=== PATIENT | female | born 1995 | race Two or more races ===

== ENCOUNTER 2018-09-05 06:43 | Emergency (ER) | payer MEDICAID ==
[~2018-09-05] VITALS: Ht 172.7 cm; Wt 131.8 kg
[~2018-09-05 06:43] MED LIST: CYCL-1 PO; MECL-111 PO
[2018-09-05 07:15] LABS: CLARITY,URINE CLEAR (Clear); COLOR,URINE YELLOW (Yellow); GLUCOSE, URINE NEGATIVE (Neg); KETONES,URINE TRACE mg/dl (Neg); LEUKOCYTE ESTERASE ,URINE MODERATE (Neg); NITRITES, URINE NEGATIVE (Neg); OCCULT BLOOD,URINE MODERATE (Neg); PH,URINE 5.5 (4.8-8.0); PROTEIN,URINE NEGATIVE (Neg); UROBILINOGEN,URINE 0.2 E.U/dL (0.2-1.0)
[2018-09-05 07:16] LABS: UA COLLECTION TYPE CLN CATCH MIDSTREAM; URINE HCG NEGATIVE (NEG)
[2018-09-05] MEDS ORDERED: ondansetron 4mg rapidly disintigrating tab PO ONE (07:20)
[2018-09-05 07:22] LABS: BACTERIA,URINE FEW /HPF (Neg); MUCUS STRANDS NONE SEEN /LPF (Neg); RBC,URINE 0-2 /HPF (0-2); SQUAMOUS EPITHELIAL CELL,UR MODERATE /LPF (FEW)
[2018-09-05] MEDS ORDERED: ETON1VAG VG (07:22)
[2018-09-05 07:41] LABS: BASOPHILS # (AUTO) 0.1 X10'3 (0-0.2); BASOPHILS % (AUTO) 0.7 % (0-1); EOSINOPHILS # (AUTO) 0.1 X10'3 (0-0.9); EOSINOPHILS % (AUTO) 0.5 % (0-6); HEMATOCRIT 36.1 % (35.0-45.0); HEMOGLOBIN 11.5 g/dl (12.0-16.0); LYMPHOCYTES # (AUTO) 1.9 X10'3 (1.1-4.8); LYMPHOCYTES % (AUTO) 18.9 % (21-51); MEAN CORPUSCULAR HEMOGLOBIN 22.8 PG (27.0-31.0); MEAN CORPUSCULAR HGB CONC 31.9 % (33.0-36.5); MEAN CORPUSCULAR VOLUME 71.6 FL (78-98); MEAN PLATELET VOLUME 8.7 FL (7.4-10.4); MONOCYTES # (AUTO) 0.5 X10'3 (0-0.9); MONOCYTES % (AUTO) 4.7 % (2-12); NEUTROPHILS # (AUTO) 7.7 X10'3 (1.8-7.7); NEUTROPHILS % (AUTO) 75.2 % (42-75); PLATELET COUNT 494 X10'3 (140-440); RED BLOOD COUNT 5.05 X10'6 (4.20-5.60); RED CELL DISTRIBUTION WIDTH 15.2 % (11.5-14.5); WHITE BLOOD COUNT 10.3 X10'3 (4.5-11.0)
--- NOTE | 2018-09-05 07:45 | NUR ---
US at bedside
[2018-09-05 07:55] LABS: ALANINE AMINOTRANSFERASE 20 U/L (12-78); ALBUMIN 3.3 G/DL (3.4-5.0); ALBUMIN/GLOBULIN RATIO 0.6 (1.1-1.5); ALKALINE PHOSPHATASE 77 IU/L (46-116); AMYLASE 43 U/L (25-115); ANION GAP 11 (8-16); ASPARTATE AMINO TRANSFERASE 10 U/L (10-37); BILIRUBIN,TOTAL 0.2 MG/DL (0.1-1.0); BLOOD UREA NITROGEN 12 MG/DL (7-18); BUN/CREATININE RATIO 12.9 (6.6-38.0); CHLORIDE 103 MMOL/L (99-107); CREATININE 0.93 MG/DL (0.40-0.90); GLUCOSE 111 MG/DL (70-104); LIPASE 83 U/L (73-393); POTASSIUM 3.8 MMOL/L (3.5-5.1); SODIUM 138 MMOL/L (135-145); TOTAL CARBON DIOXIDE 23.7 MMOL/L (24-32); TOTAL PROTEIN 8.7 G/DL (6.4-8.2); eGFR 75 ML/MIN
[2018-09-05 08:12] LABS: PROTHROMBIN TIME 9.8 SECONDS (9.0-12.0)
[2018-09-05] MEDS ORDERED: dicyclomine 10 MG capsule PO ONE (08:45)
[2018-09-05] MEDS ORDERED: mag hydrox/Alum hydrox/simeth 30ml oral suspension PO ONE (08:45)
[2018-09-05] MEDS ORDERED: LIDOcaine Viscous 15ml cup PO ONE (08:45)
[2018-09-05] MEDS ORDERED: PANT-47 PO (08:46)
[2018-09-05 09:32] VITALS: BP 133/69
== END 2018-09-05 09:34 | disposition home or self-care (01) ==
LOC: ER 06:43
DX: R10.13 Epigastric pain (principal); R11.2 Nausea with vomiting, unspecified; Z88.0 Allergy status to penicillin; Z79.899 Other long term (current) drug therapy
CPT/HCPCS: 36415; 76705; 80053; 81001; 81025; 82150; 83690; 85025; 85610; 87088; 99284

== ENCOUNTER 2020-07-31 05:39 | Inpatient (IN) | payer BC, OTHER ==
[2020-07-31] VITALS (8 sets, daily range): BP systolic 125–150; BP diastolic 80–103
[~2020-07-31] VITALS: Ht 172.7 cm; Wt 113.0 kg
[~2020-07-31 05:39] MED LIST changes: -CYCL-1 PO; +ETON1VAG VG; -MECL-111 PO; +PANT-47 PO
[2020-07-31 06:28] LABS: ALANINE AMINOTRANSFERASE 25 U/L (12-78); ALBUMIN 3.4 G/DL (3.4-5.0); ALBUMIN/GLOBULIN RATIO 0.7 (1.1-1.5); ALKALINE PHOSPHATASE 103 IU/L (46-116); ANION GAP 8 (8-16); ASPARTATE AMINO TRANSFERASE 13 U/L (10-37); BILIRUBIN,TOTAL 0.2 MG/DL (0.1-1.0); BLOOD UREA NITROGEN 12 MG/DL (7-18); BUN/CREATININE RATIO 14.3 (6.6-38.0); CALCIUM 9.1 MG/DL (8.5-10.1); CHLORIDE 106 MMOL/L (99-107); CREATININE 0.84 MG/DL (0.40-0.90); GLUCOSE 108 MG/DL (70-104); LIPASE < 50 U/L (73-393); POTASSIUM 4.1 MMOL/L (3.5-5.1); SODIUM 140 MMOL/L (135-145); TOTAL CARBON DIOXIDE 25.8 MMOL/L (24-32); TOTAL PROTEIN 8.3 G/DL (6.4-8.2); eGFR 83 ML/MIN
[2020-07-31 06:36] LABS: BASOPHILS # (AUTO) 0.1 X10'3 (0-0.2); BASOPHILS % (AUTO) 0.4 % (0-1); EOSINOPHILS # (AUTO) 0.1 X10'3 (0-0.9); EOSINOPHILS % (AUTO) 1.1 % (0-6); HEMATOCRIT 36.2 % (35.0-45.0); HEMOGLOBIN 11.6 g/dl (12.0-16.0); LYMPHOCYTES # (AUTO) 3.7 X10'3 (1.1-4.8); LYMPHOCYTES % (AUTO) 28.7 % (21-51); MEAN CORPUSCULAR HEMOGLOBIN 22.7 PG (27.0-31.0); MEAN CORPUSCULAR HGB CONC 32.2 g/dL (33.0-36.5); MEAN CORPUSCULAR VOLUME 70.6 FL (78-98); MEAN PLATELET VOLUME 8.3 FL (7.4-10.4); MONOCYTES # (AUTO) 0.9 X10'3 (0-0.9); MONOCYTES % (AUTO) 6.8 % (2-12); NEUTROPHILS # (AUTO) 8.2 X10'3 (1.8-7.7); PLATELET COUNT 474 X10'3 (140-440); RED BLOOD COUNT 5.12 X10'6 (4.20-5.60)
[2020-07-31] MEDS ORDERED: famotidine/PF 10 mg/ml inj IV ONE ×2 (06:55→20:55)
[2020-07-31 07:02] LABS: CLARITY,URINE SLIGHTLY CLOUDY (Clear); COLOR,URINE YELLOW (Yellow); GLUCOSE, URINE NEGATIVE (Neg); KETONES,URINE NEGATIVE (Neg); LEUKOCYTE ESTERASE ,URINE NEGATIVE (Neg); NITRITES, URINE NEGATIVE (Neg); OCCULT BLOOD,URINE NEGATIVE (Neg); PROTEIN,URINE NEGATIVE (Neg); UROBILINOGEN,URINE 0.2 E.U/dL (0.2-1.0)
[2020-07-31 07:03] LABS: URINE HCG NEGATIVE (NEG)
[2020-07-31 07:11] LABS: UA COLLECTION TYPE CLN CATCH MIDSTREAM
[2020-07-31 07:13] LABS: SQUAMOUS EPITHELIAL CELL,UR MANY /LPF (FEW)
[2020-07-31 07:14] LABS: BACTERIA,URINE FEW /HPF (Neg); RBC,URINE NONE SEEN /HPF (0-2); WBC,URINE 0-4 /HPF (0-4)
--- NOTE | 2020-07-31 07:46 | NUR ---
US at bedside.
[2020-07-31] MEDS ORDERED: morphine 10mg/ml inj. IV ONE (08:05)
[2020-07-31] MEDS ORDERED: metroNIDAZOLE-Flagyl 500mg/NS 100 ML IV STA (08:13)
[2020-07-31] MEDS ORDERED: CefTRIAXone/D5W-Rocephin 1gm 50 ML IV ONE (08:15)
[2020-07-31] MEDS ORDERED: magnesium 4gm in 100ml NS 100 ML IV PRN (09:00)
[2020-07-31] MEDS ORDERED: potassium CL 10mEq/100ml bag 100 ML IV PRN ×2 (09:00)
[2020-07-31] MEDS ORDERED: magnesium 2GM in 50ml NS 50 ML IV PRN (09:00)
[2020-07-31] MEDS ORDERED: magnesium Cl slow-release 64mg tablet PO PRN (09:00)
[2020-07-31] MEDS ORDERED: potassium Cl 20 mEq SR tablet PO PRN ×2 (09:00)
[2020-07-31] MEDS: normal saline 1000ml 1,000 ML IV SCH ×2 (09:29→18:38)
[2020-07-31 09:35] LABS: MAGNESIUM 2.1 MG/DL (1.5-2.4)
--- NOTE | 2020-07-31 10:22 | NUR ---
Received report from GABBY Ling. Patient will be admitted for inpatient for Cholethiasis. Patient denies pain, 10/12. NS at 100ml/hr started at 930. IV site right ac, gauge 20, intact, dressing dry and clean.
[2020-07-31] MEDS ORDERED: morphine 2 MG/ML inj. syringe IV ONE (11:00)
--- NOTE | 2020-07-31 11:29 | NUR ---
Patient states she was tested for Covid a month ago. MD notified if retake test. Send Rapid Covid test at 11:10.
[2020-07-31] MEDS ORDERED: NO HOME MEDS (14:01)
--- NOTE | 2020-07-31 14:28 | NUR ---
Patient on the unit from ER
--- NOTE | 2020-07-31 14:57 | NUR ---
Patient doesn't wish to have MRSA swab at this time
--- NOTE | 2020-07-31 18:05 | NUR ---
Patient in room [facility]. I have received report from GABBY Mancini and had the opportunity to ask questions and assume patient care.
--- NOTE | 2020-07-31 18:18 | NUR ---
Problems reprioritized. Patient report given, questions answered & plan of care reviewed with Demi Lin RN.
[2020-07-31] MEDS: ondansetron/PF 4mg/2ml inj IV PRN (19:26)
[2020-07-31] MEDS: K and/or MAG REPLACEMENT MC SCH (20:00)
[2020-07-31] MEDS: docusate sod 100mg capsule PO SCH (20:00)
--- NOTE | 2020-07-31 20:05 | NUR ---
Called report to Barbra in OR.
--- NOTE | 2020-07-31 20:06 | NUR ---
Patient being taken to surgery
[2020-07-31] MEDS ORDERED: BUPIVAcaine/PF 2.5 mg/ml (0.25%) 30ml vial ONE (20:42)
[2020-07-31] MEDS ORDERED: sevoflurane 250ml liquid IH ONE (20:54)
[2020-07-31] MEDS ORDERED: midazolam 2 mg/2 ml injection ONE (20:57)
[2020-07-31] MEDS ORDERED: fentaNYL /PF 50mcg/ml 5ml ampule ONE (20:57)
[2020-07-31] MEDS ORDERED: LIDOcaine 2% 5ml jelly ONE (21:03)
[2020-07-31] MEDS ORDERED: ceFOXitin 1000 MG inj ONE ×2 (21:38)
[2020-07-31] MEDS ORDERED: LIDOcaine 2% (20mg/ml) 5ml vial ONE (21:38)
[2020-07-31] MEDS ORDERED: metoclopramide 5 mg/ml inj ONE (21:38)
[2020-07-31] MEDS ORDERED: rocuronium 10mg/ml inj IV ONE ×2 (21:38→22:41)
[2020-07-31] MEDS ORDERED: propofol inj 20 ML IV ONE (21:38)
[2020-07-31] MEDS ORDERED: ondansetron/PF 4mg/2ml inj ONE (21:39)
[2020-07-31] MEDS ORDERED: dexamethasone sod phosphate 4mg/ml inj. ONE (21:39)
[2020-07-31] MEDS ORDERED: glycopyrrolate 0.2mg/ml inj ONE (21:39)
[2020-07-31] MEDS ORDERED: hydrALAZINE 20mg/ml inj. IV PRN (21:45)
[2020-07-31] MEDS ORDERED: acetaminophen 1,000mg/100ml IV 100 ML IV PRN (21:45)
[2020-07-31] MEDS ORDERED: labetalol 20mg/4ml (5mg/ml) syringe IV PRN (21:45)
[2020-07-31] MEDS ORDERED: meperidine/PF 25mg/ml syringe IV PRN ×3 (21:45)
[2020-07-31] MEDS ORDERED: proCHLORperazine 10 MG/2 ml inj IV PRN (21:45)
[2020-07-31] MEDS ORDERED: ringers solution, lacted 1,000 ML IV SCH (21:45)
[2020-07-31] MEDS ORDERED: morphine 2 MG/ML inj. syringe IV PRN (21:45)
[2020-07-31] MEDS ORDERED: ondansetron/PF 4mg/2ml inj IV PRN (21:45)
[2020-07-31] MEDS ORDERED: sugammadex 200mg/2ml injection IV ONE (22:51)
--- NOTE | 2020-07-31 23:03 | NUR ---
RECEIVED FROM OR VIA BED ACCOMPANIED BY ANESTHESIOLOGIST DR MARIN, REPORT GIVEN. PT DROWSY BUT AROUSES WITH A COMPLAINT OF PAIN AT A LEVEL 10. 20 GAUGE PIV R HAND PATENT AND RUNNING LR AT 100 ML/HR. LARGE BANDAID DRESSINGS X 5 TO ABD CDI. PPULSES PALPABLE, BRISK CAP REFILL, SKIN PINK AND WARM, SHELTON, VSS, SCDS APPLIED.
[2020-07-31] MEDS ORDERED: morphine 4 MG/ML inj SYRINge ONE (23:08)
[2020-07-31] MEDS ORDERED: HYDROcodone/acetaminophen 10/325mg tab PO PRN (23:10)
[2020-07-31] MEDS: morphine 4 MG/ML inj SYRINge IV PRN ×2 (23:21→23:26)
[2020-08-01] VITALS (12 sets, daily range): BP systolic 110–139; BP diastolic 59–88
--- NOTE | 2020-08-01 00:06 | NUR ---
Pt returned from surg; states pain 5/10; patient crying.
--- NOTE | 2020-08-01 00:06 | NUR ---
TRANSFERRED VIA BED ACCOMPANIED BY MYSELF, REPORT GIVEN. PT DROWSY BUT AROUSES WITH A COMPLAINT OF PAIN AT A LEVEL 4. 20 GAUGE PIV R HAND PATENT AND RUNNING LR AT 100 ML/HR. LARGE BANDAID DRESSINGS X 5 TO ABD CDI. PPULSES PALPABLE, BRISK CAP REFILL, SKIN PINK AND WARM, SHELTON, VSS, SCDS APPLIED. RESTING COMFORTABLY LEFT IN CARE OF REY PIERRE
[2020-08-01] MEDS: morphine 2 MG/ML inj. syringe IV PRN ×2 (00:17→03:57)
[2020-08-01] MEDS: ondansetron/PF 4mg/2ml inj IV PRN (03:53)
[2020-08-01] MEDS: normal saline 1000ml 1,000 ML IV SCH ×3 (05:00→22:55)
[2020-08-01 05:41] LABS: ANION GAP 8 (8-16); BLOOD UREA NITROGEN 9 MG/DL (7-18); BUN/CREATININE RATIO 12.9 (6.6-38.0); CALCIUM 8.5 MG/DL (8.5-10.1); CHLORIDE 104 MMOL/L (99-107); GLUCOSE 143 MG/DL (70-104); POTASSIUM 4.5 MMOL/L (3.5-5.1); SODIUM 137 MMOL/L (135-145); eGFR > 90 ML/MIN
[2020-08-01 05:54] LABS: BASOPHILS % (AUTO) 0.1 % (0-1); EOSINOPHILS % (AUTO) 0 % (0-6); HEMATOCRIT 33.3 % (35.0-45.0); HEMOGLOBIN 10.6 g/dl (12.0-16.0); LYMPHOCYTES # (AUTO) 0.7 X10'3 (1.1-4.8); LYMPHOCYTES % (AUTO) 5.3 % (21-51); MEAN CORPUSCULAR HEMOGLOBIN 22.3 PG (27.0-31.0); MEAN CORPUSCULAR HGB CONC 31.8 g/dL (33.0-36.5); MEAN CORPUSCULAR VOLUME 70.1 FL (78-98); MEAN PLATELET VOLUME 8.4 FL (7.4-10.4); MONOCYTES # (AUTO) 0.1 X10'3 (0-0.9); MONOCYTES % (AUTO) 0.6 % (2-12); NEUTROPHILS # (AUTO) 11.8 X10'3 (1.8-7.7); PLATELET COUNT 427 X10'3 (140-440); RED BLOOD COUNT 4.75 X10'6 (4.20-5.60); RED CELL DISTRIBUTION WIDTH 16.9 % (11.5-14.5); WHITE BLOOD COUNT 12.6 X10'3 (4.5-11.0)
--- NOTE | 2020-08-01 06:21 | NUR ---
Problems reprioritized. Patient report given, questions answered & plan of care reviewed with GABBY Mancini.
--- NOTE | 2020-08-01 06:39 | NUR ---
Patient in room [facility]. I have received report from Demi Lin RN and had the opportunity to ask questions and assume patient care.
[2020-08-01] MEDS: docusate sod 100mg capsule PO SCH ×2 (07:48→19:57)
[2020-08-01] MEDS: K and/or MAG REPLACEMENT MC SCH ×2 (08:00→20:00)
--- NOTE | 2020-08-01 12:50 | NUR ---
Dr. Dumont on unit to see pateints.
--- NOTE | 2020-08-01 16:26 | NUR ---
PAGER ID: [phone] MESSAGE: [phone] YOUNG Phillips will not be discharged today, Dr. Gamboa wants them another night stay. Addis [phone]
[2020-08-01 17:06] LABS: % IRON SATURATION 12 % (11-46); IRON 32 UG/DL (49-151); TOTAL IRON BINDING CAPACITY 278 UG/DL (259-388)
--- NOTE | 2020-08-01 18:08 | NUR ---
Problems reprioritized. Patient report given, questions answered & plan of care reviewed with Demi PIERRE.
--- NOTE | 2020-08-01 18:09 | NUR ---
Patient in room [facility]. I have received report from GABBY Mancini and had the opportunity to ask questions and assume patient care.
[2020-08-01] MEDS: ketorolac tromethamine 15mg/ml inj. IV PRN (19:00)
[2020-08-01] MEDS ORDERED: ketorolac trometh. 30mg/ml inj. IV SCH (20:00)
[2020-08-02] VITALS: BP 100/51
[2020-08-02] MEDS: ketorolac tromethamine 15mg/ml inj. IV PRN (04:13)
[2020-08-02 04:58] LABS: BASOPHILS % (AUTO) 0.4 % (0-1); EOSINOPHILS % (AUTO) 0.2 % (0-6); HEMOGLOBIN 9.8 g/dl (12.0-16.0); LYMPHOCYTES # (AUTO) 2.6 X10'3 (1.1-4.8); LYMPHOCYTES % (AUTO) 23.9 % (21-51); MEAN CORPUSCULAR HEMOGLOBIN 22.3 PG (27.0-31.0); MEAN CORPUSCULAR HGB CONC 31.6 g/dL (33.0-36.5); MEAN CORPUSCULAR VOLUME 70.5 FL (78-98); MEAN PLATELET VOLUME 8.2 FL (7.4-10.4); MONOCYTES # (AUTO) 0.7 X10'3 (0-0.9); MONOCYTES % (AUTO) 6.3 % (2-12); NEUTROPHILS # (AUTO) 7.6 X10'3 (1.8-7.7); NEUTROPHILS % (AUTO) 69.2 % (42-75); PLATELET COUNT 378 X10'3 (140-440); RED CELL DISTRIBUTION WIDTH 16.8 % (11.5-14.5); WHITE BLOOD COUNT 11.1 X10'3 (4.5-11.0)
[2020-08-02 05:08] LABS: ALBUMIN 2.7 G/DL (3.4-5.0); ANION GAP 7 (8-16); BLOOD UREA NITROGEN 11 MG/DL (7-18); BUN/CREATININE RATIO 14.9 (6.6-38.0); CALCIUM 8.6 MG/DL (8.5-10.1); CHLORIDE 107 MMOL/L (99-107); CREATININE 0.74 MG/DL (0.40-0.90); GLUCOSE 94 MG/DL (70-104); MAGNESIUM 2.3 MG/DL (1.5-2.4); POTASSIUM 3.7 MMOL/L (3.5-5.1); SODIUM 141 MMOL/L (135-145); TOTAL CARBON DIOXIDE 26.9 MMOL/L (24-32); eGFR > 90 ML/MIN
--- NOTE | 2020-08-02 06:10 | NUR ---
Problems reprioritized. Patient report given, questions answered & plan of care reviewed with GABBY Mancini.
--- NOTE | 2020-08-02 06:16 | NUR ---
Patient in room [facility]. I have received report from eDmi Echols RN and had the opportunity to ask questions and assume patient care.
[2020-08-02 06:50] VITALS: BP 102/54
[2020-08-02] MEDS: K and/or MAG REPLACEMENT MC SCH (08:00)
[2020-08-02] MEDS: docusate sod 100mg capsule PO SCH (08:36)
[2020-08-02] MEDS: normal saline 1000ml 1,000 ML IV SCH (08:37)
[2020-08-02 10:59] VITALS: BP 126/83
== END 2020-08-02 14:24 | disposition home or self-care (01) | DRG 419 ==
LOC: ER 05:39 → ED HOLD 10:17 → EDBEDREQ 13:58 → SUR 3N 14:28
PROVIDERS: ADMIT Internal Medicine; ATTEND Internal Medicine
PROC: 8E0W4CZ Robotic Assisted Procedure of Trunk Region, Percutaneous Endoscopic Approach (ICD-10-PCS; 2020-07-31)
PROC: 0FT44ZZ Resection of Gallbladder, Percutaneous Endoscopic Approach (ICD-10-PCS; principal; 2020-07-31 20:51)
DX: K80.00 Calculus of gallbladder with acute cholecystitis without obstruction (principal); E66.9 Obesity, unspecified; Z68.37 Body mass index [BMI] 37.0-37.9, adult; Z82.49 Family history of ischemic heart disease and other diseases of the circulatory system; Z83.3 Family history of diabetes mellitus; Z87.11 Personal history of peptic ulcer disease; Z20.828 Contact with and (suspected) exposure to other viral communicable diseases
CPT/HCPCS: 96365; 96368; 96375; 99285; Z7506; Z7508; 36415; 76700; 80048; 80053; 81001; 81025; 82948; 83540; 83550; 83690; 83735; 85025; 87635; A4215; A4618; A7000; C9399; G0378; J0694; J0696; J0780; J1100; J1885; J2001; J2250; J2270; J2405; J2704; J2765; J3010; J3490; J7030; J7120

== ENCOUNTER 2020-08-29 20:24 | Emergency (ER) | payer BC ==
[~2020-08-29] VITALS: Ht 172.7 cm; Wt 140.9 kg
[~2020-08-29 20:24] MED LIST changes: +CEPH250T PO; -ETON1VAG VG; +NO HOME MEDS; -PANT-47 PO
[2020-08-29 20:57] VITALS: BP 154/83
== END 2020-08-29 21:34 | disposition home or self-care (01) ==
LOC: ER 20:25
DX: T81.30XA Disruption of wound, unspecified, initial encounter (principal); K80.20 Calculus of gallbladder without cholecystitis without obstruction; Z88.0 Allergy status to penicillin; Z79.899 Other long term (current) drug therapy; Z48.00 Encounter for change or removal of nonsurgical wound dressing
CPT/HCPCS: 99281

== ENCOUNTER 2020-12-13 16:07 | Emergency (ER) | payer BC ==
[~2020-12-13] VITALS: Ht 172.7 cm; Wt 146.8 kg
[~2020-12-13 16:07] MED LIST changes: -CEPH250T PO
[2020-12-13 16:17] VITALS: BP 165/94
[2020-12-13] MEDS ORDERED: CLIN300C54 PO (16:28)
[2020-12-13] MEDS ORDERED: IBUP-1984 PO (16:28)
[2020-12-13] MEDS ORDERED: HYDROcodone/acetaminophen 10/325mg tab PO ONE (16:30)
== END 2020-12-13 16:45 | disposition home or self-care (01) ==
LOC: EEVIPCON 16:08 → ER 16:08
DX: K08.89 Other specified disorders of teeth and supporting structures (principal); Z88.0 Allergy status to penicillin
CPT/HCPCS: 99283

== ENCOUNTER 2021-08-16 20:33 | Emergency (ER) | payer BC ==
[~2021-08-16] VITALS: Ht 172.7 cm; Wt 145.0 kg
[2021-08-16] MEDS ORDERED: morphine 4 MG/ML inj SYRINge IV ONE (21:00)
[2021-08-16] MEDS ORDERED: ondansetron/PF 4mg/2ml inj IV ONE (21:00)
[2021-08-16 21:25] LABS: BASOPHILS # (AUTO) 0.1 X10'3 (0-0.2); BASOPHILS % (AUTO) 0.5 % (0-1); EOSINOPHILS # (AUTO) 0.1 X10'3 (0-0.9); EOSINOPHILS % (AUTO) 0.6 % (0-6); HEMATOCRIT 35.3 % (35.0-45.0); HEMOGLOBIN 11.2 g/dl (12.0-16.0); LYMPHOCYTES # (AUTO) 2.3 X10'3 (1.1-4.8); LYMPHOCYTES % (AUTO) 17.3 % (21-51); MEAN CORPUSCULAR HEMOGLOBIN 22.2 PG (27.0-31.0); MEAN CORPUSCULAR HGB CONC 31.7 g/dL (33.0-36.5); MEAN CORPUSCULAR VOLUME 69.8 FL (78-98); MEAN PLATELET VOLUME 7.7 FL (7.4-10.4); MONOCYTES # (AUTO) 0.6 X10'3 (0-0.9); MONOCYTES % (AUTO) 4.3 % (2-12); NEUTROPHILS # (AUTO) 10.4 X10'3 (1.8-7.7); NEUTROPHILS % (AUTO) 77.3 % (42-75); PLATELET COUNT 493 X10'3 (140-440); RED BLOOD COUNT 5.06 X10'6 (4.20-5.60); RED CELL DISTRIBUTION WIDTH 16.8 % (11.5-14.5); WHITE BLOOD COUNT 13.5 X10'3 (4.5-11.0)
[2021-08-16 21:30] LABS: CLARITY,URINE SLIGHTLY CLOUDY (Clear); COLOR,URINE YELLOW (Yellow); GLUCOSE, URINE NEGATIVE (Neg); KETONES,URINE TRACE mg/dl (Neg); LEUKOCYTE ESTERASE ,URINE SMALL (Neg); NITRITES, URINE NEGATIVE (Neg); OCCULT BLOOD,URINE TRACE-LYSED (Neg); PROTEIN,URINE NEGATIVE (Neg); URINE HCG NEGATIVE (NEG); UROBILINOGEN,URINE 0.2 E.U/dL (0.2-1.0)
--- NOTE | 2021-08-16 21:30 | NUR ---
U/S tech at bedside.
[2021-08-16 21:39] LABS: UA COLLECTION TYPE CLN CATCH MIDSTREAM
[2021-08-16 21:41] LABS: ALANINE AMINOTRANSFERASE 22 U/L (12-78); ALBUMIN 3.2 G/DL (3.4-5.0); ALBUMIN/GLOBULIN RATIO 0.6 (1.1-1.5); ALKALINE PHOSPHATASE 97 IU/L (46-116); ANION GAP 12 (8-16); ASPARTATE AMINO TRANSFERASE 17 U/L (10-37); BILIRUBIN,TOTAL 0.3 MG/DL (0.1-1.0); BLOOD UREA NITROGEN 12 MG/DL (7-18); BUN/CREATININE RATIO 13.2 (6.6-38.0); CALCIUM 8.9 MG/DL (8.5-10.1); CHLORIDE 103 MMOL/L (99-107); CREATININE 0.91 MG/DL (0.40-0.90); GLUCOSE 178 MG/DL (70-104); LIPASE < 50 U/L (73-393); SODIUM 138 MMOL/L (135-145); TOTAL CARBON DIOXIDE 22.6 MMOL/L (24-32); TOTAL PROTEIN 8.2 G/DL (6.4-8.2); eGFR 75 ML/MIN
[2021-08-16 21:41] LABS: BACTERIA,URINE 2+ /HPF (Neg); MUCUS STRANDS FEW /LPF (Neg); SQUAMOUS EPITHELIAL CELL,UR MODERATE /LPF (FEW)
[2021-08-16 21:42] LABS: POTASSIUM 3.7 MMOL/L (3.5-5.1)
[2021-08-16] MEDS ORDERED: ketorolac trometh. 30mg/ml inj. IM ONE (21:45)
--- NOTE | 2021-08-16 22:14 | NUR ---
Pt transported to CT by [employer].
[2021-08-16 22:37] LABS: LARGE PLATELETS FEW; PLATELET ESTIMATE INCREASED
[2021-08-16 22:38] LABS: ANISOCYTOSIS 1+; MICROCYTOSIS 2+
[2021-08-16] MEDS ORDERED: metroNIDAZOLE-Flagyl 500mg/NS 100 ML IV ONE (22:55)
[2021-08-16] MEDS ORDERED: levoFLOXACIN-Levaquin 500mg/D5 100 ML IV ONE (22:55)
[2021-08-16] MEDS ORDERED: normal saline 1000ml 1,000 ML IV ONE ×2 (23:00)
[2021-08-16] MEDS ORDERED: METR-159 PO (23:02)
[2021-08-16] MEDS ORDERED: HYDR-3965 PO (23:02)
[2021-08-16] MEDS ORDERED: CIPR-259 PO (23:02)
[2021-08-16] MEDS ORDERED: ONDA4TAB6 PO (23:02)
[2021-08-17] MEDS ORDERED: ondansetron/PF 4mg/2ml inj IV ONE (01:05)
[2021-08-17] MEDS ORDERED: morphine 4 MG/ML inj SYRINge IV ONE (01:05)
[2021-08-17 02:12] VITALS: BP 132/91
== END 2021-08-17 02:13 | disposition home or self-care (01) ==
LOC: ER 20:33
DX: K57.92 Diverticulitis of intestine, part unspecified, without perforation or abscess without bleeding (principal); N39.0 Urinary tract infection, site not specified; R11.0 Nausea; Z90.49 Acquired absence of other specified parts of digestive tract; Z88.0 Allergy status to penicillin
CPT/HCPCS: 36415; 74176; 76856; 80053; 81001; 81025; 83690; 85008; 85025; 87088; 93976; 96365; 96372; 96375; 96376; 99285; J1885; J1956; J2270; J2405; J3490; J7030

== ENCOUNTER 2021-08-24 06:58 | Emergency (ER) | payer BC, OTHER ==
[~2021-08-24] VITALS: Ht 172.7 cm; Wt 143.0 kg
[~2021-08-24 06:58] MED LIST changes: +CIPR-259 PO; +METR-159 PO; +ONDA4TAB6 PO
[2021-08-24 07:40] VITALS: BP 133/90
[2021-08-24] MEDS ORDERED: CYCL-1 PO (08:55)
[2021-08-24] MEDS ORDERED: ketorolac trometh inj. 60 MG/2 ML VIAL IM ONE (08:55)
== END 2021-08-24 09:12 | disposition home or self-care (01) ==
LOC: ER 06:58 → EEVIPCON 06:58 → ER 09:12
DX: M62.830 Muscle spasm of back (principal); Z90.49 Acquired absence of other specified parts of digestive tract; Z88.0 Allergy status to penicillin; Z79.2 Long term (current) use of antibiotics; Z79.899 Other long term (current) drug therapy; V87.7XXA Person injured in collision between other specified motor vehicles (traffic), initial encounter; Y93.89 Activity, other specified; Y92.89 Other specified places as the place of occurrence of the external cause; Y99.8 Other external cause status
CPT/HCPCS: 96372; 99283; J1885

== ENCOUNTER 2022-11-12 11:05 | Outpatient (CLI) | payer BC ==
[~2022-11-12 11:05] MED LIST changes: -CIPR-259 PO; +CYCL-1 PO; -METR-159 PO
[2022-11-12 12:10] LABS: ALANINE AMINOTRANSFERASE 23 U/L (12-78); ALBUMIN 3.2 G/DL (3.4-5.0); ALBUMIN/GLOBULIN RATIO 0.7 (1.1-1.5); ALKALINE PHOSPHATASE 88 IU/L (46-116); ANION GAP 5 (8-16); ASPARTATE AMINO TRANSFERASE 22 U/L (10-37); BILIRUBIN,TOTAL 0.2 MG/DL (0.1-1.0); BLOOD UREA NITROGEN 9 MG/DL (7-18); BUN/CREATININE RATIO 13.4 (6.6-38.0); CALCIUM 8.8 MG/DL (8.5-10.1); CHLORIDE 104 MMOL/L (99-107); CHOL/HDL RATIO 3.8 (0.00-4.99); CHOLESTEROL 177 MG/DL (0-200); CREATININE 0.67 MG/DL (0.40-0.90); GLUCOSE 107 MG/DL (70-104); HDL CHOLESTEROL 47 MG/DL (35-60); LDL CHOLESTEROL 111 MG/DL (50-100); POTASSIUM 3.9 MMOL/L (3.5-5.1); SODIUM 137 MMOL/L (135-145); TOTAL CARBON DIOXIDE 27.8 MMOL/L (24-32); TOTAL PROTEIN 7.7 G/DL (6.4-8.2); TRIGLYCERIDES 128 MG/DL (20-135); eGFR > 90 ML/MIN
[2022-11-12 12:12] LABS: BASOPHILS % (AUTO) 0.4 % (0-1); EOSINOPHILS # (AUTO) 0.1 X10'3 (0-0.9); EOSINOPHILS % (AUTO) 1.1 % (0-6); HEMATOCRIT 35.8 % (35.0-45.0); LYMPHOCYTES # (AUTO) 2.4 X10'3 (1.1-4.8); LYMPHOCYTES % (AUTO) 24.8 % (21-51); MEAN CORPUSCULAR HEMOGLOBIN 20.9 PG (27.0-31.0); MEAN CORPUSCULAR HGB CONC 30.6 g/dL (33.0-36.5); MEAN CORPUSCULAR VOLUME 68.2 FL (78-98); MEAN PLATELET VOLUME 8.1 FL (7.4-10.4); MONOCYTES # (AUTO) 0.5 X10'3 (0-0.9); MONOCYTES % (AUTO) 5.2 % (2-12); NEUTROPHILS # (AUTO) 6.6 X10'3 (1.8-7.7); NEUTROPHILS % (AUTO) 68.5 % (42-75); PLATELET COUNT 469 X10'3 (140-440); RED BLOOD COUNT 5.25 X10'6 (4.20-5.60); RED CELL DISTRIBUTION WIDTH 17.9 % (11.5-14.5); WHITE BLOOD COUNT 9.6 X10'3 (4.5-11.0)
[2022-11-12 14:09] LABS: PLATELET ESTIMATE INCREASED
[2022-11-12 14:10] LABS: ANISOCYTOSIS 1+; MICROCYTOSIS 2+
[2022-11-12 14:12] LABS: CLARITY,URINE SLIGHTLY CLOUDY (Clear); COLOR,URINE YELLOW (Yellow); GLUCOSE, URINE NEGATIVE (Neg); KETONES,URINE NEGATIVE (Neg); LEUKOCYTE ESTERASE ,URINE NEGATIVE (Neg); NITRITES, URINE NEGATIVE (Neg); OCCULT BLOOD,URINE MODERATE (Neg); PROTEIN,URINE NEGATIVE (Neg); UROBILINOGEN,URINE 0.2 E.U/dL (0.2-1.0)
[2022-11-12 14:17] LABS: UA COLLECTION TYPE CLN CATCH MIDSTREAM
[2022-11-12 14:21] LABS: WBC,URINE 0-4 /HPF (0-4)
[2022-11-12 14:22] LABS: BACTERIA,URINE FEW /HPF (Neg); SQUAMOUS EPITHELIAL CELL,UR FEW /LPF (FEW)
[2022-11-13 16:28] LABS: FSH, SERUM 1.6 mIU/mL (.); PROLACTIN 23.2 ng/mL (4.8-23.3)
== END 2022-11-12 23:59 | disposition home or self-care (01) ==
LOC: RAD 11:05
PROVIDERS: ATTEND Nurse Practitioner Family
DX: N88.8 Other specified noninflammatory disorders of cervix uteri (principal); N91.2 Amenorrhea, unspecified; R53.83 Other fatigue; F41.9 Anxiety disorder, unspecified; E66.01 Morbid (severe) obesity due to excess calories; Z68.43 Body mass index [BMI] 50.0-59.9, adult
CPT/HCPCS: 36415; 76830; 76856; 80053; 80061; 81001; 83001; 84146; 84402; 84403; 84439; 84443; 85008; 85025; 93976

== ENCOUNTER 2022-12-13 12:04 | Outpatient (CLI) | payer BC ==
[2022-12-13 15:26] LABS: % IRON SATURATION 6 % (11-46); IRON 21 UG/DL (49-151); TOTAL IRON BINDING CAPACITY 358 UG/DL (259-388)
== END 2022-12-13 23:59 | disposition home or self-care (01) ==
LOC: LAB 12:04
PROVIDERS: ATTEND Nurse Practitioner Family
DX: D64.9 Anemia, unspecified (principal); D75.839 Thrombocytosis, unspecified
CPT/HCPCS: 36415; 83540; 83550

== ENCOUNTER 2022-12-30 09:08 | Emergency (ER) | payer BC ==
[2022-12-30 09:09] VITALS: BP 138/90
[2022-12-30] MEDS ORDERED: dexamethasone sod phosphate 10mg/ml inj PO STA (09:16)
[2022-12-30] MEDS ORDERED: naphazoline/pheniramine eye 1 DROP BOTTLE EACHEYE PRN (09:20)
== END 2022-12-30 10:25 | disposition home or self-care (01) ==
LOC: ER 09:08
DX: J30.9 Allergic rhinitis, unspecified (principal); Z88.0 Allergy status to penicillin; Z79.899 Other long term (current) drug therapy; Z79.1 Long term (current) use of non-steroidal anti-inflammatories (NSAID)
CPT/HCPCS: 99283; J1100

== ENCOUNTER 2023-02-01 07:24 | Outpatient (CLI) | payer BC ==
[2023-02-01 08:20] LABS: BASOPHILS % (AUTO) 0.4 % (0-1); EOSINOPHILS # (AUTO) 0.2 X10'3 (0-0.9); EOSINOPHILS % (AUTO) 1.5 % (0-6); HEMATOCRIT 33.3 % (35.0-45.0); HEMOGLOBIN 10.3 g/dl (12.0-16.0); LYMPHOCYTES # (AUTO) 2.8 X10'3 (1.1-4.8); MEAN CORPUSCULAR HEMOGLOBIN 20.5 PG (27.0-31.0); MEAN CORPUSCULAR HGB CONC 30.8 g/dL (33.0-36.5); MEAN CORPUSCULAR VOLUME 66.6 FL (78-98); MEAN PLATELET VOLUME 7.6 FL (7.4-10.4); MONOCYTES # (AUTO) 0.6 X10'3 (0-0.9); NEUTROPHILS # (AUTO) 6.2 X10'3 (1.8-7.7); NEUTROPHILS % (AUTO) 63.1 % (42-75); PLATELET COUNT 531 X10'3 (140-440); RED CELL DISTRIBUTION WIDTH 16.3 % (11.5-14.5); WHITE BLOOD COUNT 9.8 X10'3 (4.5-11.0)
[2023-02-01 08:38] LABS: ALANINE AMINOTRANSFERASE 21 U/L (12-78); ALBUMIN 3.2 G/DL (3.4-5.0); ALBUMIN/GLOBULIN RATIO 0.7 (1.1-1.5); ALKALINE PHOSPHATASE 100 IU/L (46-116); ANION GAP 9 (8-16); ASPARTATE AMINO TRANSFERASE 12 U/L (10-37); BILIRUBIN,TOTAL 0.2 MG/DL (0.1-1.0); BLOOD UREA NITROGEN 11 MG/DL (7-18); BUN/CREATININE RATIO 14.5 (10.0-20.0); CALCIUM 8.7 MG/DL (8.5-10.1); CHLORIDE 104 MMOL/L (99-107); CREATININE 0.76 MG/DL (0.40-0.90); GLUCOSE 117 MG/DL (70-104); SODIUM 136 MMOL/L (135-145); TOTAL CARBON DIOXIDE 23.4 MMOL/L (24-32); TOTAL PROTEIN 7.5 G/DL (6.4-8.2); eGFR > 90 ML/MIN
[2023-02-01 09:18] LABS: PLATELET ESTIMATE INCREASED
[2023-02-01 09:19] LABS: ANISOCYTOSIS 1+; HYPOCHROMASIA 2+; MICROCYTOSIS 2+; POLYCHROMASIA FEW
[2023-02-01 09:30] LABS: HEMOGLOBIN A1C 6.3 % (4.5-6.2)
[2023-02-02 15:24] LABS: ESTRADIOL 92.6 pg/mL (.); FSH, SERUM 4.4 mIU/mL (.); LUTEINIZING HORMONE 7.4 mIU/mL (.)
[2023-02-03 08:43] LABS: INSULIN 69.6 uIU/mL (2.6-24.9)
[2023-02-04 08:37] LABS: TESTOSTERONE, FREE, DIRECT 0.6 pg/mL (0.0-4.2)
== END 2023-02-01 23:59 | disposition home or self-care (01) ==
LOC: LAB 07:24
PROVIDERS: ATTEND Nurse Practitioner Family
DX: N91.4 Secondary oligomenorrhea (principal); R53.83 Other fatigue
CPT/HCPCS: 36415; 80053; 82306; 82397; 82670; 83001; 83002; 83036; 83525; 84146; 84402; 84403; 84439; 84443; 85008; 85025

== ENCOUNTER 2023-06-26 08:27 | Outpatient (CLI) | payer BC ==
[2023-06-26 09:37] LABS: CHOL/HDL RATIO 4.5 (0.00-4.99); CHOLESTEROL 157 MG/DL (0-200); HDL CHOLESTEROL 35 MG/DL (35-60); LDL CHOLESTEROL 101 MG/DL (50-100); TRIGLYCERIDES 95 MG/DL (20-135)
== END 2023-06-26 23:59 | disposition home or self-care (01) ==
LOC: LAB 08:27
PROVIDERS: ATTEND Internal Medicine Endocrinology, Diabetes & Metabolism
DX: E78.5 Hyperlipidemia, unspecified (principal)
CPT/HCPCS: 36415; 80061

== ENCOUNTER 2023-08-29 08:05 | Outpatient (CLI) | payer BC ==
[2023-08-29 09:38] LABS: ALANINE AMINOTRANSFERASE 25 U/L (12-78); ALBUMIN 3.2 G/DL (3.4-5.0); ALBUMIN/GLOBULIN RATIO 0.7 (1.1-1.5); ALKALINE PHOSPHATASE 90 IU/L (46-116); ANION GAP 8 (8-16); ASPARTATE AMINO TRANSFERASE 19 U/L (10-37); BILIRUBIN,TOTAL 0.3 MG/DL (0.1-1.0); BLOOD UREA NITROGEN 12 MG/DL (7-18); BUN/CREATININE RATIO 15.8 (10.0-20.0); CHLORIDE 103 MMOL/L (99-107); CHOL/HDL RATIO 3.8 (0.00-4.99); CHOLESTEROL 172 MG/DL (0-200); CREATININE 0.76 MG/DL (0.40-0.90); FERRITIN 15 NG/ML (8-252); FREE T4 (FREE THYROXINE) 1.18 NG/DL (0.73-1.40); GLUCOSE 104 MG/DL (70-104); HDL CHOLESTEROL 45 MG/DL (35-60); LDL CHOLESTEROL 101 MG/DL (50-100); POTASSIUM 4.1 MMOL/L (3.5-5.1); SODIUM 137 MMOL/L (135-145); THYROID STIMULATING HORMONE 1.92 ulU/ml (0.34-4.50); TOTAL CARBON DIOXIDE 25.7 MMOL/L (24-32); TRIGLYCERIDES 136 MG/DL (20-135); eGFR > 90 ML/MIN
[2023-08-29 10:34] LABS: % IRON SATURATION 8 % (11-46); IRON 28 UG/DL (49-151); TOTAL IRON BINDING CAPACITY 359 UG/DL (259-388)
[2023-08-30 12:56] LABS: VITAMIN D, 25-HYDROXY 25.3 ng/mL (30.0-100.0)
[2023-08-30 18:23] LABS: ANTITHYROGLOBULIN AB 1.9 IU/mL (0.0-0.9)
== END 2023-08-29 23:59 | disposition home or self-care (01) ==
LOC: LAB SPEC 08:05
PROVIDERS: ATTEND Internal Medicine Endocrinology, Diabetes & Metabolism
DX: R73.03 Prediabetes (principal); R93.89 Abnormal findings on diagnostic imaging of other specified body structures; E55.9 Vitamin D deficiency, unspecified; E78.5 Hyperlipidemia, unspecified; D50.9 Iron deficiency anemia, unspecified
CPT/HCPCS: 36415; 80053; 80061; 82306; 82728; 83540; 83550; 84439; 84443; 86376; 86800

== ENCOUNTER 2024-01-29 07:00 | Outpatient (CLI) | payer BC ==
[2024-01-29 07:19] LABS: BASOPHILS % (AUTO) 0.3 % (0-1); EOSINOPHILS # (AUTO) 0.1 X10'3 (0-0.9); EOSINOPHILS % (AUTO) 1.6 % (0-6); HEMATOCRIT 33.8 % (35.0-45.0); HEMOGLOBIN 10.6 g/dl (12.0-16.0); LYMPHOCYTES # (AUTO) 2.7 X10'3 (1.1-4.8); LYMPHOCYTES % (AUTO) 30.3 % (21-51); MEAN CORPUSCULAR HEMOGLOBIN 21.1 PG (27.0-31.0); MEAN CORPUSCULAR HGB CONC 31.4 g/dL (33.0-36.5); MEAN CORPUSCULAR VOLUME 67.1 FL (78-98); MEAN PLATELET VOLUME 7.6 FL (7.4-10.4); MONOCYTES # (AUTO) 0.5 X10'3 (0-0.9); NEUTROPHILS # (AUTO) 5.6 X10'3 (1.8-7.7); NEUTROPHILS % (AUTO) 61.8 % (42-75); PLATELET COUNT 542 X10'3 (140-440); RED BLOOD COUNT 5.04 X10'6 (4.20-5.60); RED CELL DISTRIBUTION WIDTH 18.7 % (11.5-14.5)
[2024-01-29 07:40] LABS: HEMOGLOBIN A1C 5.8 % (4.5-6.2)
[2024-01-29 07:48] LABS: ANISOCYTOSIS 2+; MICROCYTOSIS 2+; PLATELET ESTIMATE INCREASED
[2024-01-29 07:49] LABS: ALANINE AMINOTRANSFERASE 24 U/L (12-78); ALBUMIN 3.1 G/DL (3.4-5.0); ALBUMIN/GLOBULIN RATIO 0.7 (1.1-1.5); ALKALINE PHOSPHATASE 90 IU/L (46-116); ANION GAP 5 (8-16); ASPARTATE AMINO TRANSFERASE 12 U/L (10-37); BILIRUBIN,TOTAL 0.2 MG/DL (0.1-1.0); BLOOD UREA NITROGEN 7 MG/DL (7-18); CALCIUM 8.6 MG/DL (8.5-10.1); CHLORIDE 106 MMOL/L (99-107); CHOL/HDL RATIO 3.7 (0.00-4.99); CHOLESTEROL 168 MG/DL (0-200); ELLIPTOCYTES FEW; FERRITIN 11 NG/ML (8-252); GLUCOSE 100 MG/DL (70-104); HDL CHOLESTEROL 46 MG/DL (35-60); LARGE PLATELETS FEW; LDL CHOLESTEROL 104 MG/DL (50-100); POTASSIUM 4.3 MMOL/L (3.5-5.1); SODIUM 139 MMOL/L (135-145); STOMATOCYTES FEW; THYROID STIMULATING HORMONE 2.81 ulU/ml (0.34-4.50); TOTAL CARBON DIOXIDE 27.9 MMOL/L (24-32); TOTAL PROTEIN 7.7 G/DL (6.4-8.2); TRIGLYCERIDES 115 MG/DL (20-135); eGFR > 90 ML/MIN
[2024-01-29 08:33] LABS: % IRON SATURATION 5 % (11-46); IRON 19 UG/DL (49-151); TOTAL IRON BINDING CAPACITY 355 UG/DL (259-388)
== END 2024-01-29 23:59 | disposition home or self-care (01) ==
LOC: RAD 07:00
PROVIDERS: ATTEND Internal Medicine Endocrinology, Diabetes & Metabolism
DX: E28.2 Polycystic ovarian syndrome (principal); R73.03 Prediabetes; R79.89 Other specified abnormal findings of blood chemistry; D64.9 Anemia, unspecified
CPT/HCPCS: 36415; 80053; 80061; 82728; 83036; 83540; 83550; 84443; 85008; 85025

== ENCOUNTER 2024-08-14 08:41 | Outpatient (CLI) | payer BC ==
[2024-08-14 09:51] LABS: THYROID STIMULATING HORMONE 1.78 ulU/ml (0.34-4.50)
[2024-08-18 13:15] LABS: ANTITHYROGLOBULIN AB 1.4 IU/mL (0.0-0.9)
== END 2024-08-14 23:59 | disposition home or self-care (01) ==
LOC: RAD 08:41
PROVIDERS: ATTEND Internal Medicine Endocrinology, Diabetes & Metabolism
DX: D50.9 Iron deficiency anemia, unspecified (principal); E06.3 Autoimmune thyroiditis
CPT/HCPCS: 36415; 83540; 83550; 84443; 86376; 86800

== ENCOUNTER 2025-01-27 12:09 | Outpatient (CLI) | payer BC ==
[2025-01-27 12:46] LABS: BASOPHILS % (AUTO) 0.5 % (0-1); EOSINOPHILS # (AUTO) 0.1 X10'3 (0-0.9); EOSINOPHILS % (AUTO) 0.9 % (0-6); HEMATOCRIT 36.5 % (35.0-45.0); HEMOGLOBIN 11.8 g/dl (12.0-16.0); LYMPHOCYTES # (AUTO) 1.8 X10'3 (1.1-4.8); LYMPHOCYTES % (AUTO) 22.7 % (21-51); MEAN CORPUSCULAR HEMOGLOBIN 23.4 PG (27.0-31.0); MEAN CORPUSCULAR HGB CONC 32.2 g/dL (33.0-36.5); MEAN CORPUSCULAR VOLUME 72.7 FL (78-98); MEAN PLATELET VOLUME 8.2 FL (7.4-10.4); MONOCYTES # (AUTO) 0.4 X10'3 (0-0.9); MONOCYTES % (AUTO) 5.2 % (2-12); NEUTROPHILS # (AUTO) 5.5 X10'3 (1.8-7.7); NEUTROPHILS % (AUTO) 70.7 % (42-75); PLATELET COUNT 458 X10'3 (140-440); RED BLOOD COUNT 5.02 X10'6 (4.20-5.60); RED CELL DISTRIBUTION WIDTH 15.8 % (11.5-14.5); WHITE BLOOD COUNT 7.8 X10'3 (4.5-11.0)
[2025-01-27 13:02] LABS: ALANINE AMINOTRANSFERASE 27 U/L (12-78); ALBUMIN 3.3 G/DL (3.4-5.0); ALBUMIN/GLOBULIN RATIO 0.7 (1.1-1.5); ALKALINE PHOSPHATASE 90 IU/L (46-116); ANION GAP 7 (8-16); ASPARTATE AMINO TRANSFERASE 14 U/L (10-37); BILIRUBIN,TOTAL 0.3 MG/DL (0.1-1.0); BLOOD UREA NITROGEN 9 MG/DL (7-18); BUN/CREATININE RATIO 11.7 (10.0-20.0); CALCIUM 9.1 MG/DL (8.5-10.1); CHLORIDE 106 MMOL/L (99-107); CHOL/HDL RATIO 4.2 (0.00-4.99); CHOLESTEROL 193 MG/DL (0-200); CREATININE 0.77 MG/DL (0.40-0.90); GLUCOSE 95 MG/DL (70-104); HDL CHOLESTEROL 46 MG/DL (35-60); LDL CHOLESTEROL 122 MG/DL (50-100); POTASSIUM 4.3 MMOL/L (3.5-5.1); SODIUM 140 MMOL/L (135-145); THYROID STIMULATING HORMONE 1.42 ulU/ml (0.34-4.50); TOTAL CARBON DIOXIDE 26.8 MMOL/L (24-32); TOTAL PROTEIN 7.8 G/DL (6.4-8.2); TRIGLYCERIDES 198 MG/DL (20-135); eGFR 88 ML/MIN
== END 2025-01-27 23:59 | disposition home or self-care (01) ==
LOC: LAB 12:09
PROVIDERS: ATTEND Internal Medicine Endocrinology, Diabetes & Metabolism
DX: E78.5 Hyperlipidemia, unspecified (principal); R73.03 Prediabetes; E03.9 Hypothyroidism, unspecified
CPT/HCPCS: 36415; 80053; 80061; 84443; 85025

== ENCOUNTER 2025-06-21 07:10 | Day surgery (SDC) | payer BC ==
[~2025-06-21] VITALS: Ht 172.7 cm; Wt 137.7 kg
[~2025-06-21 07:10] MED LIST changes: -CYCL-1 PO; +FERR-116 PO; +MAGN250T11 PO; +METF-900 PO; -NO HOME MEDS; +OMEP40CA21 PO; -ONDA4TAB6 PO; +ringers solution, lacted 1,000 ML IV SCH
[2025-06-21 07:19] VITALS: BP 154/99; PULSE 106; RESP 15; RESP 16; TEMP 98.4; O2SAT 98
[2025-06-21] MEDS ORDERED: MIDAZolam 1 MG/ML 5ML VIAL ONE (09:19)
[2025-06-21] MEDS ORDERED: fentaNYL/PF 50MCG/1 ML 2ML syringe ONE (09:19)
[2025-06-21 10:05] VITALS: BP 79/54; PULSE 82; RESP 18; O2SAT 20
[2025-06-21 10:10] VITALS: BP 123/77
[2025-06-21 10:20] VITALS: BP 119/75; PULSE 78; RESP 20; O2SAT 93
[2025-06-21 10:30] VITALS: BP 119/76; PULSE 87; RESP 15; O2SAT 97
== END 2025-06-21 10:50 | disposition home or self-care (01) ==
LOC: GI LAB 07:10
PROVIDERS: ATTEND Internal Medicine Gastroenterology
DX: K58.0 Irritable bowel syndrome with diarrhea (principal); K62.1 Rectal polyp; J45.909 Unspecified asthma, uncomplicated; E66.9 Obesity, unspecified; G47.30 Sleep apnea, unspecified; I25.2 Old myocardial infarction; Z79.2 Long term (current) use of antibiotics; Z79.84 Long term (current) use of oral hypoglycemic drugs; Z79.899 Other long term (current) drug therapy; Z90.49 Acquired absence of other specified parts of digestive tract; Z68.42 Body mass index [BMI] 45.0-49.9, adult; Z88.0 Allergy status to penicillin
CPT/HCPCS: 45380; 82948; 99152; J2250; J3010; J7120; Z7512; 99153; A4620

== ENCOUNTER 2025-08-17 10:54 | Outpatient (CLI) | payer BC ==
[~2025-08-17 10:54] MED LIST changes: -ringers solution, lacted 1,000 ML IV SCH
[2025-08-17 11:53] LABS: MEAN PLATELET VOLUME 8.3 FL (7.4-10.4); RED CELL DISTRIBUTION WIDTH 15.5 % (11.5-14.5)
[2025-08-17 13:28] LABS: % IRON SATURATION 11 % (11-46)
== END 2025-08-17 23:59 | disposition home or self-care (01) ==
LOC: LAB 10:54
PROVIDERS: ATTEND Internal Medicine Endocrinology, Diabetes & Metabolism
DX: E03.9 Hypothyroidism, unspecified (principal); D50.9 Iron deficiency anemia, unspecified
CPT/HCPCS: 36415; 82728; 83540; 83550; 84443; 85025